=== PATIENT | female | born 1965 | race Caucasian/White ===

== ENCOUNTER 2016-12-22 10:42 | Emergency (ER) | payer MEDICAID ==
[2016-12-22 11:05] VITALS: BP 141/81
--- NOTE | 2016-12-22 11:25 | EDM.PDOC ---
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 No injury. Has had sciatica before but this does not feel like that. Feels like pain is covering entire low back. Denies urinary symptoms. Took Ibuprofen this morning without relief. Onset: Gradual Onset Date: 12/21/16 Duration: Intermittent Location: Reports: Back Quality: Reports: Ache Severity: Mild Improves with: Reports: Rest Worsens with: Reports: Movement Context: Reports: Activity Associated Symptoms: Reports: No Other Symptoms low back Pain Score (Numeric/FACES): 4 - Related Data Allergies Allergy/AdvReac Type Severity Reaction Status Date / Time No Known Allergies Allergy Verified 12/22/16 11:02 Home Meds: Home Meds Acyclovir 200 mg PO DAILY 12/22/16 [History] Past Medical History Musculoskeletal History: Reports: Other (See Below) Other Musculoskeletal History: sciatica - Infectious Disease History Infectious Disease History: Reports: Herpes - Past Surgical History Female Surgical History: Reports: Hysterectomy, Oophorectomy Musculoskeletal Surgical History: Reports: None Social & Family History - Tobacco Use Smoking Status *Q: Light Tobacco Smoker Years of Tobacco use: 35 Packs/Tins Daily: 0.5 - Recreational Drug Use Recreational Drug Use: No ED ROS GENERAL - Review of Systems Review Of Systems: See Below Constitutional: Reports: No Symptoms HEENT: Reports: No Symptoms Respiratory: Reports: No Symptoms Cardiovascular: Reports: No Symptoms Musculoskeletal: Reports: Back Pain Skin: Reports: No Symptoms Neurological: Reports: No Symptoms ED EXAM,LOWER BACK PAIN/INJURY - Physical Exam Exam: See Below Exam Limited By: No Limitations General Appearance: Alert, WD/WN, No Apparent Distress Ears: Normal External Exam, Normal Canal, Hearing Grossly Normal, Normal TMs Nose: Normal Inspection, Normal Mucosa, No Blood Throat/Mouth: Normal Inspection, Normal Lips, Normal Teeth, Normal Gums, Normal Oropharynx, Normal Voice, No Airway Compromise Head: Atraumatic, Normocephalic Neck: Normal Inspection, Supple, Non-Tender, Full Range of Motion Respiratory/Chest: No Respiratory Distress, Lungs Clear, Normal Breath Sounds, No Accessory Muscle Use, Chest Non-Tender Cardiovascular: Normal Peripheral Pulses, Regular Rate, Rhythm, No Edema, No Gallop, No JVD, No Murmur, No Rub Back Exam: Normal Inspection, Decreased Range of Motion (limited flexion and extension of low back.) Extremities: Normal Inspection, Normal Range of Motion, Non-Tender, No Pedal Edema, Normal Capillary Refill Neurological: Alert, Normal Mood/Affect, Normal Dorsiflexion, CN II-XII Intact, Normal Plantar Flexion, Normal Gait, Normal Reflexes, No Motor/Sensory Deficits , Oriented x 3 Course - Vital Signs Last Recorded V/S: Last Vital Signs Temp 98.1 F 12/22/16 11:04 Pulse 91 12/22/16 11:04 Resp 12 12/22/16 11:04 BP 141/81 H 12/22/16 11:04 Pulse Ox 96 12/22/16 11:04 - Orders/Labs/Meds Orders: Active Orders 24 hr Category Date Time Status UA W/MICROSCOPIC [URIN] Stat Lab 12/22/16 11:16 Uncollected Departure - Departure Time of Disposition: 11:30 Disposition: Home, Self-Care 01 Condition: Good Clinical Impression: Low back pain Qualifiers: Chronicity: acute Back pain laterality: midline Sciatica presence: without sciatica Qualified Code(s): M54.5 - Low back pain - Discharge Information Instructions: Muscle Strain, [id number] Referrals: PCP,None [Primary Care Provider] - Additional Instructions: Toradol 30mg IM given. Flexeril 10mg po given. Pt to continue ice, stretching. Exercised demonstrated today. Rx for Flexeril 10mg po TID as needed for pain. Followup if persists. - Problem List & Annotations (1) Low back pain SNOMED Code(s): 976745931 Code(s): M54.5 - LOW BACK PAIN Status: Acute Priority: Low Current Visit: Yes - My Orders Last 24 Hours: My Active Orders 12/22/16 11:16 UA W/MICROSCOPIC [URIN] Stat - Assessment/Plan Last 24 Hours: My Active Orders 12/22/16 11:16 UA W/MICROSCOPIC [URIN] Stat
[2016-12-22] MEDS ORDERED: Cyclobenzaprine 10 MG Tab PO ONE (11:29)
[2016-12-22] MEDS ORDERED: Ketorolac 60 MG/2 ML SDV IM ONE (11:29)
== END 2016-12-22 11:54 | disposition home or self-care (01) ==
LOC: JP.ED 10:42
DX: M54.5 Low back pain (principal); F17.210 Nicotine dependence, cigarettes, uncomplicated; Z90.710 Acquired absence of both cervix and uterus; Z79.899 Other long term (current) drug therapy
CPT/HCPCS: 81001; 96372; 99284; A9270; J1885

== ENCOUNTER 2021-11-05 00:03 | Emergency (ER) | payer MEDICAID ==
[2021-11-05] MEDS ORDERED: Sodium Chloride 0.9% 10 ML Syringe FLUSH PRN (00:19)
[2021-11-05] MEDS ORDERED: Aspirin 81 MG Tab.Chew PO ONE (00:25)
[2021-11-05] MEDS: Nitroglycerin 0.4 MG Tab.SL SL PRN ×3 (00:30→00:39)
[2021-11-05 00:43] LABS: ESTIMATED GFR 59 mL/min (>60)
[2021-11-05] MEDS ORDERED: Ketorolac 30 MG/ML SDV IVPUSH ONE (01:02)
[2021-11-05 01:08] VITALS: BP 158/82; PULSE 88
== END 2021-11-05 01:37 | disposition home or self-care (01) ==
LOC: JP.ED 00:03
DX: R07.81 Pleurodynia (principal); R09.1 Pleurisy; Z79.899 Other long term (current) drug therapy; Z90.710 Acquired absence of both cervix and uterus; Z20.822 Contact with and (suspected) exposure to COVID-19
CPT/HCPCS: 36415; 71046; 80053; 84484; 85025; 85379; 86140; 87635; 93005; 96374; 99285; A9270; J1885; J3490; U0002

== ENCOUNTER 2022-02-23 12:48 | Emergency (ER) | payer MEDICAID ==
[2022-02-23 13:04] VITALS: BP 149/92; PULSE 95
[2022-02-23] MEDS ORDERED: Ketorolac 30 MG/ML SDV IM ONE (13:37)
== END 2022-02-23 14:38 | disposition home or self-care (01) ==
LOC: JP.ED 12:48
DX: S20.212A Contusion of left front wall of thorax, initial encounter (principal); Z72.0 Tobacco use; W00.0XXA Fall on same level due to ice and snow, initial encounter
CPT/HCPCS: 71101-26-LT; 71101-LT; 96372; 99283; J1885

== ENCOUNTER 2022-09-20 08:08 | Day surgery (SDC) | payer MEDICAID ==
[2022-09-20] MEDS ORDERED: fentaNYL 50 MCG/ML SDV ONE (08:54)
[2022-09-20] MEDS ORDERED: Propofol 200 MG/20 ML SDV ONE (08:54)
[2022-09-20] MEDS ORDERED: Midazolam 1 MG/ML 2 ML SDV ONE (08:54)
[2022-09-20] MEDS ORDERED: Lactated Ringers 1,000 ML IV SCH (09:00)
[2022-09-20 10:49] VITALS: PULSE 84
[2022-09-20 11:13] VITALS: BP 147/91
== END 2022-09-20 11:25 | disposition home or self-care (01) ==
LOC: JP.SDS 08:08
PROVIDERS: ATTEND Student in an Organized Health Care Education/Training Program
DX: Z12.11 Encounter for screening for malignant neoplasm of colon (principal); D12.4 Benign neoplasm of descending colon; D12.5 Benign neoplasm of sigmoid colon; K63.5 Polyp of colon; K57.30 Diverticulosis of large intestine without perforation or abscess without bleeding; G47.33 Obstructive sleep apnea (adult) (pediatric); F41.9 Anxiety disorder, unspecified; F32.A Depression, unspecified; E66.01 Morbid (severe) obesity due to excess calories; Z79.899 Other long term (current) drug therapy; Z88.1 Allergy status to other antibiotic agents; Z68.42 Body mass index [BMI] 45.0-49.9, adult
CPT/HCPCS: 45380; 88305; J2250; J2704; J3010; J7120

== ENCOUNTER 2022-12-25 06:33 | Emergency (ER) | payer MEDICAID, OTHER ==
[2022-12-25 06:59] LABS: BASOPHILS ABSOLUTE AUTO 0.04 K/uL (0.00-0.10); BASOPHILS PERCENT AUTO 0.5 % (0.1-1.3); EOSINOPHILS ABSOLUTE AUTO 0.32 K/uL (0.00-0.40); EOSINOPHILS PERCENT AUTO 3.9 % (0.0-5.4); HEMATOCRIT 43.1 % (34.3-46.0); HEMOGLOBIN 13.5 g/dL (11.2-15.5); IMMATURE GRAN ABSOLUTE AUTO 0.04 K/uL (0.00-0.23); IMMATURE GRAN PERCENT AUTO 0.5 % (0.0-0.7); LYMPHOCYTES ABSOLUTE AUTO 1.35 K/uL (0.8-3.3); LYMPHOCYTES PERCENT AUTO 16.5 % (11.4-47.7); MEAN CORPUSCULAR HGB CONC 31.3 g/dL (31.6-35.5); MONOCYTES PERCENT AUTO 4.9 % (3.3-12.6); NEUTROPHILS ABSOLUTE AUTO 6.05 K/uL (1.0-7.6); NEUTROPHILS PERCENT AUTO 73.7 % (40.0-78.1); PLATELET COUNT,PLT 245 K/uL (130-375); RED BLOOD CELL COUNT 5.19 M/uL (3.77-5.24); WHITE BLOOD CELL COUNT,WBC 8.2 K/uL (3.2-11.0)
[2022-12-25 07:23] LABS: ANION GAP 8.1 mmol/L (5.0-14.0); BLOOD UREA NITROGEN,BUN 15 mg/dL (7-18); CALCIUM 8.6 mg/dL (8.5-10.1); CARBON DIOXIDE,CO2 28 mmol/L (21-32); CHLORIDE,CL 104 mmol/L (100-108); EST CRCL DRUG DOSING (CG) 61.09 mL/min; ESTIMATED GFR 66 mL/min (>60); GLUCOSE RANDOM 134 mg/dL (74-106); POTASSIUM,K 3.7 mmol/L (3.6-5.2); SODIUM,NA 140 mmol/L (140-148); TROPONIN I HIGH SENSITIVITY < 4.0 pg/mL (<=60.3)
[2022-12-25] MEDS ORDERED: Ketorolac 30 MG/ML SDV IVPUSH ONE (07:23)
[2022-12-25] MEDS ORDERED: Alum Hydrox/Mag Hydrox/Simeth 15 ML, Lidocaine 2% 15 ML PO ONE ×2 (07:48)
[2022-12-25] MEDS ORDERED: LORazepam 2 MG/ML SDV IVPUSH ONE (09:12)
[2022-12-25 10:12] VITALS: BP 140/85; PULSE 83
== END 2022-12-25 10:31 | disposition home or self-care (01) ==
LOC: JP.ED 06:33
DX: R07.89 Other chest pain (principal); E66.9 Obesity, unspecified; Z88.8 Allergy status to other drugs, medicaments and biological substances
CPT/HCPCS: 36415; 71046; 80048; 84484; 85025; 85379; 93005; 96374; 96375; 99285; A9270; J1885; J2060

== ENCOUNTER 2023-11-25 08:37 | Day surgery (SDC) | payer MEDICAID ==
[2023-11-25] MEDS ORDERED: Propofol 200 MG/20 ML SDV ONE (10:01)
[2023-11-25] MEDS ORDERED: fentaNYL 50 MCG/ML SDV ONE (10:01)
[2023-11-25] MEDS ORDERED: Midazolam 1 MG/ML 2 ML SDV ONE (10:01)
[2023-11-25] MEDS: Sodium Chloride 0.9% 1,000 ML IV SCH (10:30)
[2023-11-25 12:43] VITALS: BP 142/88; PULSE 83
== END 2023-11-25 12:46 | disposition home or self-care (01) ==
LOC: JP.SDS 08:37
PROVIDERS: ATTEND Surgery
DX: R10.13 Epigastric pain (principal); Z91.018 Allergy to other foods
CPT/HCPCS: 43239; 88305; J2250; J2704; J3010; J7030; 00731-QZ

== ENCOUNTER 2024-01-08 07:37 | Day surgery (SDC) | payer MEDICAID, OTHER ==
[~2024-01-08 07:37] MED LIST: Bupivacaine 0.5%/EPINEPHrine 1:200,000 50 ML MDV ONE; Dexamethasone 4 MG/ML SDV ONE; Glycopyrrolate 0.2 MG/ML 5 ML MDV ONE; Neostigmine Methylsulfate 10 MG/10 ML MDV ONE; Ondansetron 4 MG/2 ML SDV ONE; Propofol 200 MG/20 ML SDV ONE; Rocuronium 50 MG/5 ML Vial ONE; fentaNYL 250 MCG/5 ML SDV ONE
[2024-01-08] MEDS: Sodium Chloride 0.9% 1,000 ML IV SCH (08:05)
[2024-01-08] MEDS: Indocyanine Green 25 MG SDV IV ONE (08:06)
[2024-01-08 08:12] LABS: HEMOGLOBIN 13.9 g/dL (11.2-15.5); MEAN CORPUSCULAR HEMOGLOBIN 27.1 pg (31.6-35.5); MEAN CORPUSCULAR HGB CONC 32.3 g/dL (31.6-35.5); MEAN CORPUSCULAR VOLUME 83.8 fL (81.4-99.0); RED BLOOD CELL COUNT 5.13 M/uL (3.77-5.24); WHITE BLOOD CELL COUNT,WBC 8.9 K/uL (3.2-11.0)
[2024-01-08 08:29] LABS: A/G RATIO 0.5 (1.2-2.2); ALANINE AMINOTRANSFERASE,ALT 24 U/L (12-78); ALBUMIN 2.9 g/dL (3.4-5.0); ALKALINE PHOSPHATASE 80 U/L (46-116); ANION GAP 7.5 mmol/L (5.0-14.0); ASPARTATE AMNIOTRANSFERASE,AST 21 U/L (15-37); BILIRUBIN TOTAL 0.3 mg/dL (0.2-1.0); BLOOD UREA NITROGEN,BUN 13 mg/dL (7-18); CALCIUM 8.8 mg/dL (8.5-10.1); CARBON DIOXIDE,CO2 30 mmol/L (21-32); CHLORIDE,CL 107 mmol/L (100-108); EST CRCL DRUG DOSING (CG) 60.36 mL/min; ESTIMATED GFR 66 mL/min (>60); GLUCOSE RANDOM 113 mg/dL (74-106); POTASSIUM,K 3.6 mmol/L (3.6-5.2); PROTEIN TOTAL,TP 8.5 g/dL (6.4-8.2); SODIUM,NA 144 mmol/L (140-148)
[2024-01-08] MEDS ORDERED: Succinylcholine 200 MG/10 ML MDV ONE (08:55)
[2024-01-08] MEDS: ceFAZolin 2 GM in Premix Bag 1 BAG IV ONE (09:20)
[2024-01-08] MEDS: metroNIDAZOLE/Normal Saline 500 MG in Premix Bag 1 BAG IV ONE (09:30)
[2024-01-08] MEDS: Lidocaine 1% with EPINEPHrine 1:100,000 50 ML MDV ONE (09:53)
[2024-01-08] MEDS: Bupivacaine 0.5% 50 ML MDV ONE (09:53)
[2024-01-08] MEDS ORDERED: Sugammadex Sodium 200 MG/2 ML VIAL IV ONE (10:42)
[2024-01-08 12:18] VITALS: PULSE 95
[2024-01-08] MEDS: Acetaminophen/HYDROcodone 325-5 MG Tab PO ONE (13:05)
[2024-01-08 13:09] VITALS: BP 137/67
== END 2024-01-08 13:44 | disposition home or self-care (01) ==
LOC: JP.SDS 07:37
PROVIDERS: ATTEND Surgery
DX: K80.10 Calculus of gallbladder with chronic cholecystitis without obstruction (principal); E66.813 Obesity, class 3; G47.33 Obstructive sleep apnea (adult) (pediatric); F41.8 Other specified anxiety disorders; Z79.899 Other long term (current) drug therapy; Z91.018 Allergy to other foods; Z68.41 Body mass index [BMI] 40.0-44.9, adult
CPT/HCPCS: 00790; 36415; 47562; 80053; 85027; 87070; 87075; 87205; 88304; A9270; J0171; J0330; J0665; J0690; J1100; J1596; J1836; J2405; J2704; J2710; J2795; J3010; J3490; J7030